=== PATIENT | male | born 1965 | race Caucasian/White ===

== ENCOUNTER 2017-06-21 13:25 | Emergency (ER) | payer MEDICARE, OTHER, SELFPAY ==
[~2017-06-21] VITALS: Ht 188 cm; Wt 96.8 kg
[2017-06-21] MEDS ORDERED: HYDROcodone/APAP 5/325 TABLET PO ONE (14:00)
[2017-06-21] MEDS ORDERED: HYDROcodone/APAP 5/325 TABLET ONE (14:02)
[2017-06-21] MEDS ORDERED: [UNRECOGNIZED DRUG - REMARK] PO (14:08)
[2017-06-21 14:21] VITALS: BP 120/68
== END 2017-06-21 14:27 | disposition home or self-care (01) ==
LOC: ED 13:30
DX: K02.9 Dental caries, unspecified (principal)
CPT/HCPCS: 99283

== ENCOUNTER 2020-02-03 20:58 | Emergency (ER) | payer MEDICARE, MEDICAID ==
[~2020-02-03] VITALS: Ht 188 cm; Wt 100.0 kg
[~2020-02-03 20:58] MED LIST: [UNRECOGNIZED DRUG - REMARK] PO
--- NOTE | 2020-02-03 21:11 | NUR ---
PT AMISH. PER EMS PT HAS BEEN OFF MEDICATIONS FOR 8-12 MONTHS, LIVING WITH MOTHER. PER EMS MOTHER CALLED EMS BECAUSE PT WAS "HAVING BEHAVIORS". PT REPORTS METH USE AND STATES "THEY DIAGNOSED ME WITH DANGEROUS SCHIZOPHRENIA". PT ALSO REPORTS HAVING SI AND PLAN TO SHOOT HIMSELF WITH FRIENDS PISTOL. PT DENIES HI AT THIS TIME. PT RESTING IN [facility] AT THIS TIME, WILL CONTINUE TO MONITOR.
--- NOTE | 2020-02-03 21:30 | NUR ---
PT BELONGINGS IN LOCKED STORAGE LOCKER.
[2020-02-03] MEDS ORDERED: LORazepam 1MG TABLET ONE (21:40)
[2020-02-03 21:55] LABS: BASOPHILS % (AUTO) 1 % (0-1); EOSINOPHILS % (AUTO) 3 % (1-7); LYMPHOCYTES % (AUTO) 29 % (22-44); MEAN CORPUSCULAR HEMOGLOBIN 30.4 pg (27.5-34.5); MEAN CORPUSCULAR HGB CONC 33.9 g/dL (33.2-36.2); MEAN PLATELET VOLUME 7.1 fL (7.4-10.4); MONOCYTES % (AUTO) 10 % (2-9); NEUTROPHILS % (AUTO) 56 % (42-75); PLATELET COUNT 319 x10^3/uL (130-400); RED BLOOD COUNT 4.39 x10^6/uL (4.38-5.82)
[2020-02-03 21:56] LABS: MD NO
[2020-02-03] MEDS ORDERED: LORazepam 1MG TABLET PO ONE (22:00)
[2020-02-03 22:03] LABS: ALANINE AMINOTRANSFERASE 25 U/L (12-78); ALBUMIN 3.7 g/dL (3.4-5.0); ANION GAP 4 mmol/L (5-15); CALCIUM 8.6 mg/dL (8.5-10.1); CHLORIDE 110 mmol/L (98-107)
[2020-02-03 22:06] LABS: ALKALINE PHOSPHATASE 74 U/L (45-117); BILIRUBIN,TOTAL 0.6 mg/dL (0.2-1.0); TOTAL PROTEIN 6.9 g/dL (6.4-8.2)
--- NOTE | 2020-02-03 23:26 | NUR ---
PT RESTING IN [facility] AT BEDSIDE, NADN AT THIS TIME, WILL CONTINUE TO MONITOR.
[2020-02-03 23:32] VITALS: BP 108/77
--- NOTE | 2020-02-04 | NUR ---
PT IN DIRECT LINE OF SITE OF SITTER. PT RESTING IN RNEY WITH EYES CLOSED.
--- NOTE | 2020-02-04 01:26 | NUR ---
PT RESTING IN [facility] AT THIS TIME, BELONGINGS STILL IN SAFE KEEPING, PT WITHIN DIRECT LINE OF SITE OF SITTER. WILL CONTINUE TO MONITOR.
--- NOTE | 2020-02-04 02:03 | NUR ---
REPORT GIVEN TO JASEN KOHLI.
--- NOTE | 2020-02-04 03:08 | NUR ---
REPORT FROM JASEN KOHLI
--- NOTE | 2020-02-04 03:19 | NUR ---
URINAL PROVIDED FOR URINE SAMPLE.
--- NOTE | 2020-02-04 03:27 | NUR ---
PT ENCOURAGED A SECOND TIME FOR URINE SAMPLE.
--- NOTE | 2020-02-04 04:16 | NUR ---
pt encouraged a third time for urine sample.
--- NOTE | 2020-02-04 04:35 | NUR ---
PT PROVIDED URINE SAMPLE. TUBED TO LAB.
--- NOTE | 2020-02-04 04:37 | NUR ---
PT RESTING ON GURNEY. EYES CLOSED, RESPIRATIONS EVEN AND UNLABORED. SITTER IN DIRECT LINE OF SIGHT FOR SAFTEY.
[2020-02-04 04:48] LABS: MICROSCOPIC NOT IND
[2020-02-04 05:06] LABS: AMPHETAMINE SCREEN, URINE Positive (Negative); BARBITURATE SCREEN, URINE Negative (Negative); BENZODIAZEPINE SCREEN, URINE Negative (Negative); CANNABINOID SCREEN, URINE Positive (Negative); COCAINE SCREEN, URINE Negative (Negative); METHADONE SCREEN, URINE Negative (Negative); OPIATE SCREEN, URINE Negative (Negative)
--- NOTE | 2020-02-04 05:15 | NUR ---
packet [facility] to [facility], [facility], [place]
--- NOTE | 2020-02-04 05:33 | NUR ---
REPORT TO ANDERSON AT THIS TIME
--- NOTE | 2020-02-04 05:38 | NUR ---
DR MATTHEWS ACCEPTING
== END 2020-02-04 07:05 ==
LOC: ED 02-04 00:28
DX: R45.851 Suicidal ideations (principal); F20.0 Paranoid schizophrenia; Z91.14 Patient's other noncompliance with medication regimen; R25.8 Other abnormal involuntary movements
CPT/HCPCS: 36415; 80053; 80299; 80307; 80320; 80329; 81003; 85025; 99285; G0480

== ENCOUNTER 2020-03-04 08:54 | Emergency (ER) | payer MEDICARE, MEDICAID ==
[~2020-03-04] VITALS: Ht 185.4 cm; Wt 97.1 kg
[2020-03-04 09:12] VITALS: BP 131/74
--- NOTE | 2020-03-04 09:21 | NUR ---
MORTUARY BEAUTICIAN: PT WALKS INTO TRIAGE ROOM, NO EYE CONTACT, MUMBLING SPEECH. WHEN ASKED TO TAKE HIS JACKET OFF SO WE COULD OBTAIN BP PT THREW HIS HAT ON THE FLOOR, AGGRESSIVELY REMOVED HIS GLASSES TOSSING THEM ON THE COUNTER. PT VERY VAGUE REGARDING SYMPTOMS. WHEN ASKED ABOUT SEEING OR HEARING THINGS STATED "STUFF MOVES AROUND THE APARTMENT" PT DENIED SI/HI.
[2020-03-04] MEDS ORDERED: KETOROLAC 30 MG/1 ML ONE (09:52)
[2020-03-04] MEDS ORDERED: DIAZEPAM 5 MG TABLET ONE (09:52)
[2020-03-04] MEDS ORDERED: KETOROLAC 30 MG/1 ML IM ONE (10:00)
[2020-03-04] MEDS ORDERED: DIAZEPAM 5 MG TABLET PO ONE (10:00)
== END 2020-03-04 11:02 | disposition home or self-care (01) ==
LOC: ED 10:21
DX: S16.1XXA Strain of muscle, fascia and tendon at neck level, initial encounter (principal); F15.122 Other stimulant abuse with intoxication with perceptual disturbance; F17.200 Nicotine dependence, unspecified, uncomplicated; X58.XXXA Exposure to other specified factors, initial encounter; Y93.89 Activity, other specified; Y92.89 Other specified places as the place of occurrence of the external cause; Y99.8 Other external cause status
CPT/HCPCS: 96372; 99283; J1885

== ENCOUNTER 2020-04-27 19:03 | Emergency (ER) | payer MEDICARE, MEDICAID ==
[~2020-04-27] VITALS: Ht 188 cm; Wt 96.0 kg
[2020-04-27 19:16] VITALS: BP 127/76
--- NOTE | 2020-04-27 19:35 | NUR ---
CC OF "SUPER BUG" IN EYEBALLS FROM CHILDHOOD. PT UNABLE TO PROVIDE MORE DETAILS. DENIES VISION DIFFICULTY AND TRUAMA. PT HAS FLIGHT OF IDEAS DURING ASSESSMENT. DR LENZ AT BEDSIDE. WHEN ASKED IF HE USES ANY ILLEGAL DRUGS OR DRINKS PT RESPONDS WITH "DO I DRIVE A CAR?", PT ASKED AGAIN AND HE RESPONDED WITH "YOURE SMART YOU FIGURE IT OUT".
[2020-04-27 19:46] LABS: BASOPHILS % (AUTO) 1 % (0-1); EOSINOPHILS % (AUTO) 3 % (1-7); LYMPHOCYTES % (AUTO) 33 % (22-44); MEAN CORPUSCULAR HEMOGLOBIN 30.4 pg (27.5-34.5); MEAN CORPUSCULAR HGB CONC 33.9 g/dL (33.2-36.2); MEAN PLATELET VOLUME 6.9 fL (7.4-10.4); MONOCYTES % (AUTO) 11 % (2-9); NEUTROPHILS % (AUTO) 51 % (42-75); PLATELET COUNT 303 x10^3/uL (130-400); RED BLOOD COUNT 4.47 x10^6/uL (4.38-5.82); RED CELL DISTRIBUTION WIDTH 13.6 % (9.4-14.8)
[2020-04-27 19:49] LABS: MD NO
[2020-04-27 19:55] LABS: AMPHETAMINE SCREEN, URINE Positive (Negative); BARBITURATE SCREEN, URINE Negative (Negative); BENZODIAZEPINE SCREEN, URINE Negative (Negative); CANNABINOID SCREEN, URINE Negative (Negative); COCAINE SCREEN, URINE Negative (Negative); METHADONE SCREEN, URINE Negative (Negative); OPIATE SCREEN, URINE Negative (Negative)
[2020-04-27 19:57] LABS: ALBUMIN 3.9 g/dL (3.4-5.0); ANION GAP 5 mmol/L (5-15); CALCIUM 8.3 mg/dL (8.5-10.1); CHLORIDE 110 mmol/L (98-107); SALICYLATE LEVEL 2.3 mg/dL (2.8-20.0)
--- NOTE | 2020-04-27 21:18 | NUR ---
BREAK RN: PT GIVEN A BLANKET. PT RESTING IN ROOM. NO ACUTE DISTRESS NOTED. WILL CONTINUE TO MONITOR WHILE PRIMARY RNNOAH IS ON BREAK.
--- NOTE | 2020-04-27 21:52 | NUR ---
BREAK RN: REPORT GIVEN TO JASEN ZAMORA
--- NOTE | 2020-04-27 22:14 | NUR ---
conrad howard called rn stating pt could be dc from his standpoint. dr camarena updated
== END 2020-04-27 22:16 | disposition left against medical advice (07) ==
LOC: ED 22:00
DX: F22 Delusional disorders (principal); F20.9 Schizophrenia, unspecified
CPT/HCPCS: 36415; 80048; 80299; 80307; 80320; 80329; 82040; 85025; 99284; G0480

== ENCOUNTER 2020-04-28 01:27 | Emergency (ER) | payer MEDICARE, MEDICAID ==
[~2020-04-28] VITALS: Ht 188 cm; Wt 95.0 kg
[2020-04-28 01:29] VITALS: BP 134/90
[2020-04-28] MEDS ORDERED: ONDANSETRON ODT 4 MG ONE (01:45)
--- NOTE | 2020-04-28 01:52 | NUR ---
PT GIVEN NAUSEA MEDICATION AND DC PAPERWORK. PT VERBALIZES UNDERSTANDING
[2020-04-28] MEDS ORDERED: ONDANSETRON ODT 4 MG PO ONE (02:00)
== END 2020-04-28 01:54 | disposition home or self-care (01) ==
LOC: ED 01:50
DX: F15.150 Other stimulant abuse with stimulant-induced psychotic disorder with delusions (principal); R11.0 Nausea; Z72.9 Problem related to lifestyle, unspecified; F17.200 Nicotine dependence, unspecified, uncomplicated
CPT/HCPCS: 99283; Q0162

== ENCOUNTER 2020-08-25 14:02 | Emergency (ER) | payer MEDICAID, MEDICARE ==
[~2020-08-25] VITALS: Ht 188 cm; Wt 91.8 kg
--- NOTE | 2020-08-25 16:21 | NUR ---
[facility] administrator: Pt ambulatory to room from lobby at this time.
--- NOTE | 2020-08-25 17:24 | NUR ---
Pt laying on floor. Pt told he can lay in gurney if he wants.
[2020-08-25 19:01] VITALS: BP 98/58
--- NOTE | 2020-08-25 19:08 | NUR ---
Report to JASEN Lambert. To assume full care. Pt sleeping on gurney, resps even and unlabored.
--- NOTE | 2020-08-25 19:15 | NUR ---
RECEIVED REPORT BY JASEN DE OLIVEIRA PT ELOPED AND IS NOT LONGER IN ROOM, BELONGINGS GONE, AND BATHROOM CHECKED.
== END 2020-08-25 19:25 | disposition left against medical advice (07) ==
LOC: ED 19:00
DX: M79.644 Pain in right finger(s) (principal)
CPT/HCPCS: 99283